=== PATIENT | female | born 1965 | race Caucasian/White ===

== ENCOUNTER 2017-11-23 18:39 | Emergency (ER) | payer OTHER ==
--- OUTSIDE RECORDS SUMMARY | 2017-11-23 18:41 | XMS REPORT | Clinical Summary ---
:1965 Author Organization [facility] Address [address] [place] [address] Care Team Providers Name Role Phone Aneudy Hunter MD Primary Care Provider Allergies Active Allergy Reactions Severity Noted Date Comments Codeine Itching 02/03/2017 Morphine Other (See Comments), GI Intolerance 02/03/2017 Chest pains Current Medications Prescription Sig. Disp. Refills Start End Date Status Date propranolol (INDERAL) Take 20 mg by 1 Active 20 MG tablet mouth daily. 7 LEXAPRO 10 mg tablet Take 1 tablet Active by mouth 8 daily. gabapentin (NEURONTIN) Take 1 tab at 30 capsule 3 Active 300 mg night 8 capsuleIndications: Mixed headache SUMAtriptan (IMITREX) Take 1 tablet 9 tablet 3 Active 50 MG (50 mg total) 8 tabletIndications: by mouth once Mixed headache as needed for migraine for up to 1 dose. amitriptyline (ELAVIL) 1.5 tabs at 60 tablet 4 Active 25 MG night 8 tabletIndications: Mixed headache IMITREX 50 mg tablet 06/02/20 Discontinued 7 17 ESGIC 50-325-40 mg per 02/04/20 Discontinued tablet 7 17 promethazine Take 0.5 60 tablet 2 03/05/20 (PHENERGAN) 25 MG tablets (12.5 7 17 tablet mg total) by mouth 2 (two) times a day as needed for nausea or vomiting for up to 30 days. methylPREDNISolone follow package 21 tablet 0 02/09/20 (MEDROL, FABIAN,) 4 mg directions 7 17 tablet amitriptyline (ELAVIL) Take 1 tablet 30 tablet 3 03/31/20 Discontinued 10 MG tablet (10 mg total) 7 17 by mouth nightly. amitriptyline (ELAVIL) 1 tab at night 30 tablet 4 06/02/20 Discontinued 25 MG 7 17 tabletIndications: Mixed headache keTOROlac 15.75 06/02/20 Discontinued mg/spray 7 17 spray,non-aerosol diclofenac (CATAFLAM) Take 1 tablet 90 tablet 1 10/21/19 Discontinued 50 MG (50 mg total) 7 18 tabletIndications: by mouth 2 Mixed headache (two) times a day as needed (migraine only). amitriptyline (ELAVIL) 1.5 tabs at 60 tablet 4 10/21/19 Discontinued 25 MG night 7 18 tabletIndications: Mixed headache IMITREX 50 mg Take 1 tablet 9 tablet 6 10/21/19 Discontinued tabletIndications: (50 mg total) 7 18 Mixed headache by mouth once as needed for migraine for up to 1 dose. methylPREDNISolone follow package 21 tablet 0 06/07/20 (MEDROLFABIAN,) 4 mg directions 7 17 tabletIndications: Mixed headache tiZANidine (ZANAFLEX) Take 1 tablet 60 tablet 0 06/29/19 Discontinued 2 MG (2 mg total) 7 18 tabletIndications: by mouth 2 Neck pain (two) times a day as needed for muscle spasms (neck pain) for up to 30 days. tiZANidine (ZANAFLEX) TAKE 1 60 tablet 0 10/21/19 Discontinued 2 MG TABLET(2 MG) 8 18 tabletIndications: BY MOUTH TWICE Neck pain DAILY NEEDED FOR MUSCLE SPASMS OR NECK PAIN diclofenac (CATAFLAM) Take 1 tablet 90 tablet 1 10/22/19 50 MG (50 mg total) 8 18 tabletIndications: by mouth 2 Mixed headache (two) times a day as needed (migraine only) for up to 1 day. Active Problems Problem Noted Date Mixed headache 03/31/2017 Encounters Date Type Specialty Care Team Description 10/20/2017 Office Visit Neurology Aidan Sánchez MD Mixed headache (Primary Dx) 10/20/2017 Orders Only Neurology Aidan Sánchez MD 06/29/2017 Refill Neurology Aidan Sánchez MD Neck pain 06/02/2017 Office Visit Neurology Aidan Sánchez MD Neck pain (Primary Dx); Mixed headache 03/31/2017 Office Visit Neurology Aidan Sánchez MD Mixed headache (Primary Dx) 02/03/2017 Office Visit Neurology Aidan Sánchez MD Mixed headache (Primary Dx) after 11/22/2016 Social History Tobacco Use Types Packs/Day Years Used Date Current Every Day Smoker Cigarettes 0.5 Smokeless Tobacco: Never Used Alcohol Use Drinks/Week oz/Week Comments No Sex Assigned at Date Recorded Not on file Last Filed Vital Signs Vital Sign Reading Time Taken Blood Pressure 132/80 10/20/2017 10:29 AM CDT Pulse 78 10/20/2017 10:29 AM CDT Temperature - - Respiratory Rate - - Oxygen Saturation - - Inhaled Oxygen Concentration - - Weight 93 kg (205 lb) 10/20/2017 10:29 AM CDT Height 175.3 cm (5' 9") 10/20/2017 10:29 AM CDT Body Mass Index 30.27 10/20/2017 10:29 AM CDT Plan of Treatment Date Type Specialty Care Team Description 01/26/2018 Office Visit Neurology Aidan Sán[place] [address] [id number] Health Maintenance Due Date Last Done Comments CERVICAL CANCER SCREENING 1987 BREAST CANCER SCREENING 2016 COLON CANCER SCREENING 2016 SHINGRIX VACCINE (#1) 2016 INFLUENZA VACCINE 01/24/2018 Results T3 (10/20/2017 11:04 AM) Component Value Ref Range T3 101 71 - 180 ng/dL Specimen Performing Laboratory [facility] Narrative Performed at:[address] [place], [place] [id number] Tinter Photograph: Jase Ochoa MD, Phone:[phone] Thyroid stimulating hormone (10/20/2017 11:04 AM) Component Value Ref Range TSH 1.590 0.450 - 4.500 uIU/mL Specimen Performing Laboratory [facility] Narrative Performed at:[address] [place], [place] [id number] Tinter Photograph: Jase Ochoa MD, Phone:[phone] Specimen Comment: A duplicate report has been generated due to demographic updates. T4, free (10/20/2017 11:04 AM) Component Value Ref Range T4, free 1.23 0.82 - 1.77 ng/dL Specimen Performing Laboratory [facility] Narrative Performed at: - [id number] Tinter Photograph: Jase Ochoa MD, Phone:[phone] after 11/22/2016 Insurance Payer Benefit Plan / Group Subscriber ID Type Phone Address [facility] CHOICE/CHOICE + xxxxxxxxx HMO/PPO Home: [address] [place], [place] [id number] [place] [id number]
[2017-11-23] MEDS ORDERED: TETANUS & DIPHTHERIA TOX,ADULT 0.5 ML VIAL ONE (19:09)
[2017-11-23] MEDS ORDERED: DERMABOND SKIN ADHESIVE TOP ONE (19:09)
[2017-11-23] MEDS ORDERED: CEPHALEXIN 250 MG CAP ONE (19:16)
--- NOTE | 2017-11-23 19:34 | ER ---
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 Transition of care: patient was not received from another setting of care. Onset of symptoms was November 23, 2017. Care prior to arrival: None. 18:49 Method Of Arrival: Ambulatory aj 18:49 Acuity: CARSON 4 aj 19:22 Risk Assessment: Do you want to hurt yourself or someone else? Patient reports no jd3 desire to harm self or others. Initial Sepsis Screen: Does the patient meet any 2 criteria? No. Patient's initial sepsis screen is negative. Does the patient have a suspected source of infection? No. Patient's initial sepsis screen is negative. Triage Assessment: 18:50 General: Appears in no apparent distress. comfortable, Behavior is calm, cooperative, aj appropriate for age. Pain:. Neuro: Level of Consciousness is awake, alert, obeys commands, Oriented to person, place, time, situation. Respiratory: Airway is patent Respiratory effort is even, unlabored, Respiratory pattern is regular, symmetrical. Derm: Skin is intact, is healthy with good turgor, Skin is pink, warm \T\ dry. normal. Injury Description: Laceration sustained to dorsal aspect of middle phalanx of right ring finger. 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 - Social history:: Smoking status: Patient uses tobacco products, smokes one pack cigarettes per day. - Ebola Screening: : Patient negative for fever greater than or equal to 101.5 degrees Fahrenheit, and additional compatible Ebola Virus Disease symptoms. Screenin:22 Abuse screen: Denies threats or abuse. Nutritional screening: No deficits noted. jd3 Tuberculosis screening: No symptoms or risk factors identified. Fall Risk None identified. Assessment: 19:20 General: Appears in no apparent distress. Behavior is calm, cooperative, appropriate jd3 for age. Pain: Denies pain. Neuro: Level of Consciousness is awake, alert, obeys commands, Oriented to person, place, time, situation. Cardiovascular: Capillary refill < 3 seconds Patient's skin is warm and dry. Respiratory: Airway is patent Respiratory effort is even, unlabored, Respiratory pattern is regular, symmetrical, Denies shortness of breath. GI: No signs and/or symptoms were reported involving the gastrointestinal system. : No signs and/or symptoms were reported regarding the genitourinary system. EENT: No signs and/or symptoms were reported regarding the EENT system. Derm: Skin is intact, Skin is dry, Skin is normal, Skin temperature is warm. Musculoskeletal: Circulation, motion, and sensation intact. Range of motion: intact in all extremities. Injury Description: Laceration sustained to dorsal aspect of proximal phalanx of right ring finger is clean, 0.5 to 2.5 cm long, not bleeding, was sustained 30-60 minutes ago. no active bleeding noted at this time. 19:45 Reassessment: Patient appears in no apparent distress at this time. Patient and/or jd3 family updated on plan of care and expected duration. Pain level reassessed. Patient is alert, oriented x 3, equal unlabored respirations, skin warm/dry/pink. pt reported understanding of discharge instructions, even and steady gait upon discharge. Patient denies pain at this time. Vital Signs: 18:50 BP 155 / 81; Pulse 84; Resp 16; Temp 97.7; Pulse Ox 98% on R/A; Weight 92.99 kg; Height aj 5 ft. 9 in. (175.26 cm); 18:50 Body Mass Index 30.27 (92.99 kg, 175.26 cm) aj ED Course: 18:44 Patient arrived in ED. mr 18:44 Aneudy Hunter MD is Private Physician. mr 18:49 Triage completed. aj 18:50 Arm band placed on left wrist. Patient placed in an exam room. aj 18:52 [facility]C [facility]. snw 18:52 Ramo Molina MD is Attending Physician. snw 19:03 Luis Suazo, RN is Primary Nurse. jd3 19:23 Patient has correct armband on for positive identification. Bed in low position. Call jd3 light in reach. Side rails up X 1. Adult w/ patient. 19:34 Aneudy Hunter MD is Referral Physician. snw 19:45 No provider procedures requiring assistance completed. Patient did not have IV access jd3 during this emergency room visit. Administered Medications: 18:56 CANCELLED (not needed): Lidocaine (1 %) 5 mg Infiltration once snw 19:15 Drug: Tetanus-Diphtheria Toxoid Adult 0.5 ml {Outreach Educator: [employer]. Exp: jd3 02/23/2020. Lot #: [id number]. } Route: IM; Site: right deltoid; 19:47 Follow up: Response: No adverse reaction jd3 19:16 Drug: KeFLEX 500 mg Route: PO; mg2 19:46 Follow up: Response: No adverse reaction jd3 Outcome: 19:34 Discharge ordered by . snw 19:45 Discharged to home ambulatory, with family. jd3 19:45 Condition: stable 19:45 Discharge instructions given to patient, family, Instructed on discharge instructions, follow up and referral plans. medication usage, Demonstrated understanding of instructions, follow-up care, medications, Prescriptions given X 2. 19:47 Patient left the ED. jd3 Signatures: Liudmila Ayala, RN Christine Lopez, JUNIOR ELECTRICAL ENGINEER-C JUNIOR ELECTRICAL ENGINEER-Csnw Laquita Heck mr Luis Suazo, RN RN jRalph Roper RN RN mg2
--- NOTE | 2017-11-23 19:35 | EDPHYS ---
Physician Documentation [facility] Name: Lucita Arechiga Age: 52 yrs Sex: Female : 1965 Arrival Date: 11/23/2017 Time: 18:44 Bed 6 Private MD: Aneudy Hunter V ED Physician Ramo Molina HPI: 11/23 18:59 This 52 yrs old Female presents to ER via Ambulatory with complaints of snw Laceration to finger. 18:59 The patient or guardian reports a laceration, simple. The complaints affect the PIP of snw right ring finger. Context: The problem was sustained at work. Onset: The symptoms/episode began/occurred suddenly. Associated signs and symptoms: The patient has no apparent associated signs or symptoms. Severity of symptoms: At their worst the symptoms were very mild. The patient has not experienced similar symptoms in the past. It is unknown whether or not the patient has recently seen a physician. pt unloading sheet metal and it struck her right ring finger. 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 - Social history:: Smoking status: Patient uses tobacco products, smokes one pack cigarettes per day. - Ebola Screening: : Patient negative for fever greater than or equal to 101.5 degrees Fahrenheit, and additional compatible Ebola Virus Disease symptoms. ROS: 18:58 Constitutional: Negative for fever, chills, and weight loss, Eyes: Negative for injury, snw pain, redness, and discharge, ENT: Negative for injury, pain, and discharge, Neck: Negative for injury, pain, and swelling, Cardiovascular: Negative for chest pain, palpitations, and edema, Respiratory: Negative for shortness of breath, cough, wheezing, and pleuritic chest pain, Abdomen/GI: Negative for abdominal pain, nausea, vomiting, diarrhea, and constipation, Back: Negative for injury and pain, : Negative for injury, bleeding, discharge, and swelling, MS/Extremity: Negative for injury and deformity, Neuro: Negative for headache, weakness, numbness, tingling, and seizure, Psych: Negative for depression, anxiety, suicide ideation, homicidal ideation, and hallucinations. 18:58 Skin: Positive for laceration(s), of the dorsal aspect of middle phalanx of right ring finger. Exam: 18:57 Constitutional: This is a well developed, well nourished patient who is awake, alert, snw and in no acute distress. Head/Face: Normocephalic, atraumatic. Eyes: Pupils equal round and reactive to light, extra-ocular motions intact. Lids and lashes normal. Conjunctiva and sclera are non-icteric and not injected. Cornea within normal limits. Periorbital areas with no swelling, redness, or edema. ENT: Nares patent. No nasal discharge, no septal abnormalities noted. Tympanic membranes are normal and external auditory canals are clear. Oropharynx with no redness, swelling, or masses, exudates, or evidence of obstruction, uvula midline. Mucous membranes moist. Neck: Trachea midline, no thyromegaly or masses palpated, and no cervical lymphadenopathy. Supple, full range of motion without nuchal rigidity, or vertebral point tenderness. No Meningismus. Chest/axilla: Normal chest wall appearance and motion. Nontender with no deformity. No lesions are appreciated. Cardiovascular: Regular rate and rhythm with a normal S1 and S2. No gallops, murmurs, or rubs. Normal PMI, no JVD. No pulse deficits. Respiratory: Lungs have equal breath sounds bilaterally, clear to auscultation and percussion. No rales, rhonchi or wheezes noted. No increased work of breathing, no retractions or nasal flaring. Abdomen/GI: Soft, non-tender, with normal bowel sounds. No distension or tympany. No guarding or rebound. No evidence of tenderness throughout. Back: No spinal tenderness. No costovertebral tenderness. Full range of motion. MS/ Extremity: Pulses equal, no cyanosis. Neurovascular intact. Full, normal range of motion. Neuro: Awake and alert, GCS 15, oriented to person, place, time, and situation. Cranial nerves II-XII grossly intact. Motor strength 5/5 in all extremities. Sensory grossly intact. Cerebellar exam normal. Normal gait. Psych: Awake, alert, with orientation to person, place and time. Behavior, mood, and affect are within normal limits. 18:57 Skin: Appearance: normal except for affected area, injury, laceration(s), the wound is approximately .5 cm(s), with a depth of .25 cm(s), of the dorsal aspect of middle phalanx of right ring finger. Vital Signs: 18:50 BP 155 / 81; Pulse 84; Resp 16; Temp 97.7; Pulse Ox 98% on R/A; Weight 92.99 kg; Height aj 5 ft. 9 in. (175.26 cm); 18:50 Body Mass Index 30.27 (92.99 kg, 175.26 cm) aj Laceration: 19:32 Wound Repair of .5cm ( 0.2in ) subcutaneous laceration to dorsal aspect of proximal snw phalanx of right ring finger. Linear shaped.. Distal neuro/vascular/tendon intact. Anesthesia: Local anesthetic administered with 0 mls of 1% lidocaine. Wound prep: Simple cleansing with betadine by me. Skin closed with thin layer Adhesive skin closure using Dermabond. Dressed with non-adherent dressing, finger splint to maintain extension. Patient tolerated well. MDM: 18:53 Patient medically screened. snw 19:32 Data reviewed: vital signs, nurses notes. Data interpreted: Pulse oximetry: on room air snw is 98 %. Interpretation: normal. Counseling: I had a detailed discussion with the patient and/or guardian regarding: the historical points, exam findings, and any diagnostic results supporting the discharge/admit diagnosis, the presence of at least one elevated blood pressure reading (>120/80) during this emergency department visit, the need for outpatient follow up, to return to the emergency department if symptoms worsen or persist or if there are any questions or concerns that arise at home. Special discussion: I have referred the patient to see his PCP for further evaluation of high blood pressure. Based on the history and exam findings, there is no indication for further emergent testing or inpatient evaluation. I discussed with the patient/guardian the need to see the primary care provider for further evaluation of the symptoms. 11/23 18:53 Order name: Wound dressing; Complete Time: 19:35 snw 11/23 18:53 Order name: Wound Care; Complete Time: 19:16 snw 11/23 18:57 Order name: Splint - Finger; Complete Time: 19:34 snw 11/23 18:57 Order name: Dermabond; Complete Time: 19:16 snw 11/23 18:57 Order name: Misc. Order: please soak right hand in ice water mixture long enough to get snw ring off; Complete Time: 19:15 Administered Medications: 18:56 CANCELLED (not needed): Lidocaine (1 %) 5 mg Infiltration once snw 19:15 Drug: Tetanus-Diphtheria Toxoid Adult 0.5 ml {Marketing Services Coordinator: [employer]. Exp: jd3 02/23/2020. Lot #: [id number]. } Route: IM; Site: right deltoid; 19:47 Follow up: Response: No adverse reaction jd3 19:16 Drug: KeFLEX 500 mg Route: PO; mg2 19:46 Follow up: Response: No adverse reaction jd3 Disposition: 22:17 Co-signature as Attending Physician, Ramo Molina MD I agree with the assessment and kdr plan of care. Disposition: 11/23/17 19:34 Discharged to Home. Impression: Laceration without foreign body of finger without damage to nail. - Condition is Stable. - Discharge Instructions: Cast or Splint Care, Laceration Care, Adult, Non-Sutured Laceration, VIS, Tetanus, Diphtheria (Td) - CDC. - Prescriptions for Keflex 500 mg Oral Capsule - take 1 capsule by ORAL route every 8 hours for 10 days; 30 capsule. Diclofenac Sodium 75 mg Oral Tablet Sustained Release - take 1 tablet by ORAL route 2 times per day; 30 tablet. - Medication Reconciliation Form, Thank You Letter, Antibiotic Education, Prescription Opioid Use form. - Follow up: Aneudy Hunter MD; When: 7 - 10 days; Reason: Recheck today's complaints, Continuance of care. Follow up: Emergency Department; When: As needed; Reason: Worsening of condition. Signatures: Liudmila Ayala RN RN aj Rittger, Kevin, MD MD kdr Therrien, Shelly, TRAFFIC RATE ANALYST-C TRAFFIC RATE ANALYST-Csnw Luis Suazo RN RN jRalph Roper RN RN mg2 Corrections: (The following items were deleted from the chart) 18:56 18:53 Lidocaine (1 %) 5 mg Infiltration once ordered. snw snw 19:47 19:34 11/23/2017 19:34 Discharged to Home. Impression: Laceration without foreign body jd3 of finger without damage to nail. Condition is Stable. Forms are Medication Reconciliation Form, Thank You Letter, Antibiotic Education, Prescription Opioid Use. Follow up: Aneudy Hunter; When: 7 - 10 days; Reason: Recheck today's complaints, Continuance of care. Follow up: Emergency Department; When: As needed; Reason: Worsening of condition. snw
[2017-11-23 19:52] VITALS: BP 155/81; TEMP 97.7; O2SAT 98
== END 2017-11-23 19:47 | disposition home or self-care (01) ==
LOC: ER 18:39
PROC: 0HQFXZZ Repair Right Hand Skin, External Approach (ICD-10-PCS; principal; 2017-11-23)
DX: S61.214A Laceration without foreign body of right ring finger without damage to nail, initial encounter (principal); F17.210 Nicotine dependence, cigarettes, uncomplicated; Z23 Encounter for immunization; I10 Essential (primary) hypertension; Z88.6 Allergy status to analgesic agent; W45.8XXA Other foreign body or object entering through skin, initial encounter; Y93.89 Activity, other specified; Y92.9 Unspecified place or not applicable; Y99.0 Civilian activity done for income or pay
CPT/HCPCS: 90714; 99283

== ENCOUNTER 2020-08-03 09:31 | Inpatient (IN) | payer BC, OTHER ==
[2020-08-03 10:23] LABS: Protime INR 1.01
[2020-08-03 10:40] LABS: BUN Blood Urea Nitrogen 11 mg/dL (7-18); Bicarbonate 27 mmol/L (21-32); Glucose Level 94 mg/dL (74-106); Magnesium 2.2 mg/dL (1.8-2.4); NT PRO-BNP 319 pg/mL (<125); Potassium 3.8 mmol/L (3.5-5.1); Sodium Level 142 mmol/L (136-145); Troponin (Emerg Dept Use Only) < 0.02 ng/mL (0.0-0.045)
--- NOTE | 2020-08-03 10:40 | EDPHYS ---
Physician Documentation [facility] Name: Lucita Arechiga Age: 54 yrs Sex: Female : 1965 Arrival Date: 08/03/2020 Time: 09:35 Bed 20 Private MD: Alfonso Pulido ED Physician Prince Saini HPI: 08/03 09:53 This 54 yrs old Female presents to ER via Ambulatory with complaints of rn Abnormal EKG. 09:53 The patient or guardian reports chest pain that is located primarily in the substernal rn area. Onset: 2 week(s) ago. The pain radiates to Associated signs and symptoms: Pertinent positives: cough, shortness of breath, Pertinent negatives: abdominal pain, lightheadedness, syncope, vomiting. The chest pain is described as aching, a heaviness. Duration: The patient or guardian reports multiple episodes, that are intermittent. Modifying factors: The symptoms are alleviated by rest, the symptoms are aggravated by exertion. Severity of pain: At its worst the pain was moderate in the emergency department the pain has improved. The patient has not experienced similar symptoms in the past. Sent by cardiology for suspected unstable angina, has been having intermittent chest pain with exertion, getting worse, radiates to both shoulders and back. No abd pain. + smoker with family hx of heart attacks in family at her age. No fever. No change in cough recently. . Historical: - Allergies: 09:40 Codeine; sv 09:40 Morphine; sv - PMHx: 09:40 Hypertension; Migraines; sv - PSHx: 09:40 Hysterectomy; Cholecystectomy; rotator cuff; leg surgery; sv - Immunization history:: Adult Immunizations up to date. - Social history:: Smoking status: Patient reports the use of cigarette tobacco products, denies chronic smoking, but will smoke occasionally. - Family history:: not pertinent. - Hospitalizations: : No recent hospitalization is reported. ROS: 09:53 Constitutional: Negative for fever, chills, and weight loss, Eyes: Negative for injury, rn pain, redness, and discharge, Neck: Negative for injury, pain, and swelling, Cardiovascular: Negative for palpitations, and edema, Respiratory: Negative for wheezing, and pleuritic chest pain, Abdomen/GI: Negative for abdominal pain, nausea, vomiting, diarrhea, and constipation, MS/Extremity: Negative for injury and deformity, Skin: Negative for injury, rash, and discoloration, Neuro: Negative for headache, weakness, numbness, tingling, and seizure. Exam: 09:53 Constitutional: This is a well developed, well nourished patient who is awake, alert, rn and in no acute distress. Head/Face: Normocephalic, atraumatic. Cardiovascular: Regular rate and rhythm. No pulse deficits. Respiratory: No increased work of breathing, no retractions or nasal flaring. Abdomen/GI: soft, non-tender Skin: Warm, dry MS/ Extremity: Pulses equal, no cyanosis. Neurovascular intact. Full, normal range of motion. Equal circumference. Neuro: Awake and alert, GCS 15, oriented to person, place, time, and situation. Cranial nerves II-XII grossly intact. Motor strength 5/5 in all extremities. Sensory grossly intact. Cerebellar exam normal. Normal gait. 10:37 ECG was reviewed by the Attending Physician. rn Vital Signs: 09:40 BP 153 / 96; Pulse 86; Resp 16; Temp 98.7; Pulse Ox 100% ; Weight 95.25 kg; Height 5 sv ft. 9 in. (175.26 cm); Pain 0/10; 11:00 BP 153 / 90; Pulse 82; Resp 18; Pulse Ox 100% on R/A; ph 12:00 BP 153 / 91; Pulse 73; Resp 16; Pulse Ox 99% on R/A; ph 13:00 BP 149 / 96; Pulse 81; Resp 18; Pulse Ox 100% on R/A; ph 14:00 BP 133 / 95; Pulse 82; Resp 18; Pulse Ox 100% on R/A; ph 09:40 Body Mass Index 31.01 (95.25 kg, 175.26 cm) sv MDM: 09:38 Patient medically screened. rn 09:41 ED course: Consulted with coco Link patient admitted for UA, and will plan to rn cath either today to tomorrow.. 10:38 Differential diagnosis: acute myocardial infarction, coronary artery disease stable rn angina, unstable angina. The patient was given aspirin in the Emergency Department. Data reviewed: vital signs, nurses notes, EKG, radiologic studies, plain films. Counseling: I had a detailed discussion with the patient and/or guardian regarding: the historical points, exam findings, and any diagnostic results supporting the discharge/admit diagnosis, lab results, radiology results, the need for further work-up and treatment in the hospital. Admission orders: after a detailed discussion of the patient's condition and case, the admit orders are written by me. 08/03 09:38 Order name: Basic Metabolic Panel; Complete Time: 10:48 rn 08/03 09:38 Order name: CBC with Diff rn 08/03 09:38 Order name: Magnesium; Complete Time: 10:48 rn 08/03 09:38 Order name: NT PRO-BNP; Complete Time: 10:48 rn 08/03 09:38 Order name: PT-INR; Complete Time: 10:39 rn 08/03 09:38 Order name: Troponin (emerg Dept Use Only); Complete Time: 10:48 rn 08/03 10:22 Order name: Urine Dipstick--Ancillary (enter results) bd 08/03 10:23 Order name: Urine Dipstick-Ancillary EDNM 08/03 10:54 Order name: Ptt, Activated ph 08/03 10:54 Order name: PTT, Activated Partial Thromb EDNM 08/03 13:11 Order name: Basic Metabolic Panel EDNM 08/03 13:11 Order name: Basic Metabolic Panel EDNM 08/03 13:11 Order name: Lipid Profile EDNM 08/03 09:38 Order name: XRAY Chest (1 view); Complete Time: 10:53 rn 08/03 09:38 Order name: EKG; Complete Time: 09:39 rn 08/03 09:38 Order name: Cardiac monitoring; Complete Time: 10:12 rn 08/03 09:38 Order name: EKG - Nurse/Tech; Complete Time: 10:12 rn 08/03 09:38 Order name: IV Saline Lock; Complete Time: 10:12 rn 08/03 13:11 Order name: CONS Physician Consult EDNM 08/03 13:11 Order name: Heart Healthy EDNM 08/03 13:11 Order name: Echo with Doppler EDNM 08/03 13:11 Order name: Lipid Profile EDNM 08/03 13:11 Order name: Troponin I EDNM 08/03 13:11 Order name: Troponin I EDNM 08/03 13:11 Order name: Troponin I EDNM 08/03 14:10 Order name: SARS-COV-2 RT PCR EDNM 08/03 09:38 Order name: Labs collected and sent; Complete Time: 10:12 rn 08/03 09:38 Order name: O2 Per Protocol; Complete Time: 10:12 rn 08/03 09:38 Order name: O2 Sat Monitoring; Complete Time: 10:12 rn 08/03 10:36 Order name: Labs - recollect needed: recollect cbc; Complete Time: 10:55 bd EC:37 Rate is 86 beats/min. Rhythm is regular. QRS Ivel is Normal. LA interval is normal. QRS rn interval is normal. QT interval is normal. No Q waves. T waves are Normal. ST Segment is depressed in leads II, III, aVF, V4, V5, V6. Clinical impression: NSR w/ Non-specific ST/T Changes. Interpreted by me. Reviewed by me. Administered Medications: 11:09 Drug: Heparin (NE-Bolus No thrombolytic) - HEParin 60 units/kg {Co-Signature: ll1 ph (Sarah Brady RN).} Route: IVP; Site: right antecubital; 13:32 Follow up: Response: No adverse reaction ph 11:13 Drug: Aspirin Chewable Tablet 324 mg Route: PO; ph 13:31 Follow up: Response: No adverse reaction ph 11:16 Drug: Heparin (NE Drip) 12 units/kg/hr - (HEParin 14165 units, D5W 500 ml) ph {Co-Signature: ll1 (Sarah Brady RN).} Route: IV; Rate: calculated rate; Site: right antecubital; 13:32 Follow up: IV Status: Infusion continued upon admission ph Disposition: 08/03/20 10:39 Hospitalization ordered by Carlo Marcelino for Inpatient Admission. Preliminary diagnosis are Unstable angina, Chest pain, unspecified. - Bed requested for Telemetry/MedSurg (Inpatient). - Status is Inpatient Admission. ss - Condition is Stable. - Problem is an ongoing problem. - Symptoms are unchanged. Signatures: Dispatcher [employer] EDMS Eusebia Kaminski Stephanie, RN Prince Dailey MD MD rn Smirch, Shelby, RN RN ss Elvira Pérez RN RN Marc Shook RN RN [facility] er Sarah Brady RN ll1 Corrections: (The following items were deleted from the chart) 11:41 10:39 Hospitalization Ordered by Carlo Marcelino MD for Inpatient Admission. Preliminary ss diagnosis is Unstable angina; Chest pain, unspecified. Bed requested for Telemetry/MedSurg (Inpatient). Status is Inpatient Admission. Condition is Stable. Problem is an ongoing problem. Symptoms are unchanged. rn 13:15 12:22 CORONAVIRUS+MR.LAB.BRZ ordered. EDMS EDMS 14:14 11:41 08/03/2020 10:39 Hospitalization Ordered by Carlo Marcelino MD for Inpatient bd Admission. Preliminary diagnosis is Unstable angina; Chest pain, unspecified. Bed requested for [facility] ER HOLD. Status is Inpatient Admission. Condition is Stable. Problem is an ongoing problem. Symptoms are unchanged. ss 14:32 14:14 08/03/2020 10:39 Hospitalization Ordered by Carlo Marcelino MD for Inpatient ja1 Admission. Preliminary diagnosis is Unstable angina; Chest pain, unspecified. Bed requested for [facility] ER HOLD. Status is Inpatient Admission. Condition is Stable. Problem is an ongoing problem. Symptoms are unchanged. bd 15:36 14:32 08/03/2020 10:39 Hospitalization Ordered by Carlo Marcelino MD for Inpatient ss Admission. Preliminary diagnosis is Unstable angina; Chest pain, unspecified. Bed requested for Telemetry/MedSurg (Inpatient). Status is Inpatient Admission. Condition is Stable. Problem is an ongoing problem. Symptoms are unchanged. ja1
--- NOTE | 2020-08-03 10:40 | ER ---
Nurse's Notes [facility] Name: Lucita Arechiga Age: 54 yrs Sex: Female : 1965 Arrival Date: 08/03/2020 Time: 09:35 Bed 20 Private MD: Alfonso Pulido Diagnosis: Unstable angina;Chest pain, unspecified Presentation: 08/03 09:39 Chief complaint: Patient states: sent by regional director to get a heart cath today. Pt sv reports she had gotten an EKG by her PCP and they sent her to a regional director because the EKG was abnormal. Coronavirus screen: Client denies travel out of the [place] in the last 14 days. At this time, the client does not indicate any symptoms associated with coronavirus-19. Ebola Screen: No symptoms or risks identified at this time. Risk Assessment: Do you want to hurt yourself or someone else? Patient reports no desire to harm self or others. Onset of symptoms was August 03, 2020. 09:39 Method Of Arrival: Ambulatory sv 09:39 Acuity: CARSON 3 sv 09:40 Initial Sepsis Screen: Does the patient meet any 2 criteria? No. Patient's initial sv sepsis screen is negative. Does the patient have a suspected source of infection? No. Patient's initial sepsis screen is negative. Historical: - Allergies: 09:40 Codeine; sv 09:40 Morphine; sv - PMHx: 09:40 Hypertension; Migraines; sv - PSHx: 09:40 Hysterectomy; Cholecystectomy; rotator cuff; leg surgery; sv - Immunization history:: Adult Immunizations up to date. - Social history:: Smoking status: Patient reports the use of cigarette tobacco products, denies chronic smoking, but will smoke occasionally. - Family history:: not pertinent. - Hospitalizations: : No recent hospitalization is reported. Screenin:42 Abuse screen: Denies threats or abuse. Denies injuries from another. Nutritional ph screening: No deficits noted. Tuberculosis screening: No symptoms or risk factors identified. Fall Risk None identified. Assessment: 10:00 General: Appears in no apparent distress. comfortable, well groomed, Behavior is calm, ph cooperative, appropriate for age, Denies fever, feeling ill. Pain: Complains of pain in mid-sternal area Pain radiates to bilateral shoulders denies pain at this time. Neuro: Level of Consciousness is awake, alert, obeys commands, Oriented to person, place, time, situation. Cardiovascular: Capillary refill < 3 seconds in bilateral fingers Patient's skin is warm and dry. Chest pain quality is heaviness, episodes are intermittent is aggravated by activity. Respiratory: Airway is patent Respiratory effort is even, unlabored, Respiratory pattern is regular, symmetrical. GI: No signs and/or symptoms were reported involving the gastrointestinal system. Derm: Skin is intact, is healthy with good turgor, Skin is pink, warm \T\ dry. Musculoskeletal: Circulation, motion, and sensation intact. Range of motion: intact in all extremities. 14:14 Reassessment: Patient appears in no apparent distress at this time. Patient and/or ph family updated on plan of care and expected duration. Pain level reassessed. Patient is alert, oriented x 3, equal unlabored respirations, skin warm/dry/pink. Pt taken to label machine operator. Vital Signs: 09:40 BP 153 / 96; Pulse 86; Resp 16; Temp 98.7; Pulse Ox 100% ; Weight 95.25 kg; Height 5 sv ft. 9 in. (175.26 cm); Pain 0/10; 11:00 BP 153 / 90; Pulse 82; Resp 18; Pulse Ox 100% on R/A; ph 12:00 BP 153 / 91; Pulse 73; Resp 16; Pulse Ox 99% on R/A; ph 13:00 BP 149 / 96; Pulse 81; Resp 18; Pulse Ox 100% on R/A; ph 14:00 BP 133 / 95; Pulse 82; Resp 18; Pulse Ox 100% on R/A; ph 09:40 Body Mass Index 31.01 (95.25 kg, 175.26 cm) sv ED Course: 09:35 Patient arrived in ED. mr 09:36 Alfonso Pulido MD is Private Physician. mr 09:37 Elvira Pérez, DAVE is Primary Nurse. ph 09:37 Prince Saini MD is Attending Physician. rn 09:39 Triage completed. sv 09:40 Arm band placed on. sv 09:42 Patient has correct armband on for positive identification. Placed in gown. Bed in low ph position. Call light in reach. Side rails up X 1. director dietetics department on. Pulse ox on. NIBP on. Door closed. Noise minimized. Warm blanket given. 10:12 Initial lab(s) drawn, by me, sent to lab. EKG done. Inserted saline lock: 22 gauge in ph right antecubital area, using aseptic technique. Blood collected. 10:17 X-ray completed. Portable x-ray completed in exam room. Patient tolerated procedure ml well. 10:18 XRAY Chest (1 view) In Process Unspecified. EDMS 10:38 Carlo Marcelino MD is Hospitalizing Provider. rn 12:30 COVID swab sent to lab. jp3 14:14 No provider procedures requiring assistance completed. Patient admitted, IV remains in ph place. Administered Medications: 11:09 Drug: Heparin (TX-Bolus No thrombolytic) - HEParin 60 units/kg {Co-Signature: ll1 ph (Sarah Brady RN).} Route: IVP; Site: right antecubital; 13:32 Follow up: Response: No adverse reaction ph 11:13 Drug: Aspirin Chewable Tablet 324 mg Route: PO; ph 13:31 Follow up: Response: No adverse reaction ph 11:16 Drug: Heparin (TX Drip) 12 units/kg/hr - (HEParin 00101 units, D5W 500 ml) ph {Co-Signature: ll1 (Sarah Brady RN).} Route: IV; Rate: calculated rate; Site: right antecubital; 13:32 Follow up: IV Status: Infusion continued upon admission ph Outcome: 10:39 Decision to Hospitalize by Provider. rn 14:14 Patient left the ED. bd 15:35 Admitted to Med/surg accompanied by tech, via stretcher, with chart. ph 15:35 Condition: stable 15:35 Instructed on the need for admit. 15:36 Patient left the ED. Signatures: Dispatcher [employer] EDMS Eusebia Kaminski Pratima Farr RN DAVE Heck, La mr Rubio, Prince Light MD MD rn Smirch, Shelby, RN RN ss Hall, Patricia, RN RN ph Pisarski, Jacob jp3 Sarah Brady RN ll1 Corrections: (The following items were deleted from the chart) 19:23 14:14 Condition: good ph ph 19:23 14:14 Discharged to home via wheelchair, with family, ph ph 19:23 14:14 Discharge instructions given to patient, Instructed on discharge instructions, ph follow up and referral plans. medication usage, Demonstrated understanding of instructions, follow-up care, medications, Prescriptions given X 1, ph
--- NOTE | 2020-08-03 10:52 | RAD REPORT ---
EXAM DESCRIPTION: RAD - Chest Single View - 08/03/2020 10:18 am CLINICAL HISTORY: CHEST PAIN Chest pain. COMPARISON: CHEST SINGLE VIEW dated 12/27/2014; CHEST SINGLE VIEW dated 12/09/2013 FINDINGS: Portable technique limits examination quality. The lungs are grossly clear. The heart is normal in size. No displaced fractures. IMPRESSION: No acute intrathoracic process suspected.
[2020-08-03 10:55] LABS: Absolute Lymphocytes (CBC) 1.9 K/uL (0.7-4.9); Basophils % 0.6 % (0-1.3); Hematocrit 40.8 % (36.0-45.0); Lymphocytes % 25.8 % (15.3-44.8); RBC Red Blood Cell Count 4.18 M/uL (3.86-4.86)
[2020-08-03] MEDS ORDERED: ASPIRIN 81 MG CHEWABLE TABLET ONE (11:06)
[2020-08-03] MEDS ORDERED: HEPARIN/D5W 25,000 UNIT/500 ML BAG IV ONE (11:07)
[2020-08-03] MEDS ORDERED: HEPARIN 5000 UNIT/ML 1 ML VIAL ONE (11:07)
[2020-08-03] MEDS ORDERED: ALPRAZOLAM 0.25 MG TABLET PO PRN (13:06)
[2020-08-03] MEDS ORDERED: ASPIRIN 325 MG TAB PO ONE (13:06)
[2020-08-03] MEDS ORDERED: ACETAMINOPHEN 500 MG TAB PO PRN (13:06)
[2020-08-03] MEDS ORDERED: MORPHINE 4 MG/ML SYR IV PRN (13:06)
[2020-08-03 13:24] LABS: Urine Blood NEGATIVE (NEG); Urine Glucose NEGATIVE (NEG); Urine Protein NEGATIVE (NEG); Urine Specific Gravity >1.030 (1.005-1.030); Urine pH 5.5 (5.0-7.0)
[2020-08-03] MEDS ORDERED: HEPARIN/D5W 25,000 UNIT/500 ML BAG IV SCH (14:00)
--- NOTE | 2020-08-03 14:10 | P.HP ---
Certification for Inpatient Patient admitted to: Inpatient With expected LOS: >2 Midnights Patient will require the following post-hospital care: None Practitioner: I am a practitioner with admitting privileges, knowledge of patient current condition, hospital course, and medical plan of care. Services: Services provided to patient in accordance with Admission requirements found in Title 42 Section 412.3 of the Code of Federal Regulations Patient History Date of Service: 08/03/20 Reason for admission: Unstable angina History of Present Illness: Patient is a 54-year-old female came to hospital with an abnormal EKG from her cardiology office. Patient had chest discomfort which she described as heaviness. Patient also has had some shortness of breath. Patient denies any syncope or any lightheadedness. Patient denies any palpitations. Patient denies any fever, shakes, or chills. Patient was seen in the emergency room and initial workup is unremarkable. However, patient's current symptoms are concerning for unstable angina per her history per this time will admit patient to the hospital for further evaluation. Incidentally, patient's COVID-19 testing came back positive. If she does not have any significant shortness of breath. She did have some chills a few days prior and she feels she may have had some coughing and congestion about a week ago. Otherwise, she did not really suspect that she had a viral infection. Allergies codeine Allergy (Unknown, Verified 08/03/20 18:05) Itching morphine Allergy (Verified 08/03/20 18:05) Unknown Home Medications: Indomethacin 50 mg PO BID 08/03/20 Lisinopril [Zestril] 1 tab PO DAILY 08/03/20 Ondansetron HCl [Zofran] 4 mg PO DAILY 08/03/20 - Past Medical/Surgical History Diabetic: No -: Hypertension -: Migraines -: hysterctomy -: right roter cuff -: Cholecystectomy - Family History Father Family History: Reviewed- Non-Contributory - Social History Smoking Status: Current every day smoker Alcohol use: No CD- Drugs: No Caffeine use: No Review of Systems 10-point ROS is otherwise unremarkable Physical Examination - Vital Signs Temperature: 99 F Blood Pressure: 140/80 Pulse: 80 Respirations: 18 Pulse Ox (%): 95 - Physical Exam General: Alert, In no apparent distress, Oriented x3 HEENT: Atraumatic, PERRLA, Mucous membr. moist/pink, EOMI, Sclerae nonicteric Neck: Supple, 2+ carotid pulse no bruit, No LAD, Without JVD or thyroid abnormality Respiratory: Clear to auscultation bilaterally, Normal air movement Cardiovascular: Regular rate/rhythm, Normal S1 S2, No murmurs Gastrointestinal: Normal bowel sounds, Soft and benign, Non-distended, No tenderness Musculoskeletal: No clubbing, No swelling, No tenderness Integumentary: No rashes Neurological: Normal gait, Normal speech, Normal strength at 5/5 x4 extr, Normal tone, Normal affect Lymphatics: No axilla or inguinal lymphadenopathy - Studies Laboratory Data (last 24 hrs) 08/03/20 10:49: WBC 7.30, Hgb 14.3, Hct 40.8, Plt Count 208 08/03/20 10:13: Triglycerides 201 H, Cholesterol 188, HDL Cholesterol 41, Cholesterol/HDL Ratio 4.59 08/03/20 10:13: APTT 29.2 08/03/20 10:13: PT 11.6, INR 1.01 08/03/20 10:13: Sodium 142, Potassium 3.8, BUN 11, Creatinine 0.81, Glucose 94, Magnesium 2.2 Assessment & Plan - Problems (Diagnosis) (1) Unstable angina Current Visit: Yes Status: Acute (2) COVID-19 Current Visit: Yes Status: Acute - Plan Continue with plan of care as mentioned below 1. Serial troponins and EKG 2. Appreciate Cardiology consultation 3. Echocardiogram and stress test if cardiology is agreeable 4. Anti-platelet therapy, anti coagulation, beta-fredy, statin, and O2 as needed 5. IV morphine for pain 6. Nitro p.r.n. 7. Monitor oxygenation 8. GI and DVT prophylaxis Discharge Plan: Home Plan to discharge in: Greater than 2 days - Advance Directives Does patient have a Living Will: No Does patient have a Durable POA for Healthcare: No - Code Status/Comfort Care Code Status Assessed: Yes Code Status: Full Code Critical Care: No Time Spent Managing PTS Care (In Minutes): 45
[2020-08-03] MEDS ORDERED: HEPA 1000U/500MLS 0 UNIT/0 ML BAG IV ONE (14:28)
[2020-08-03 15:52] VITALS: BMI 31.0
[2020-08-03] MEDS ORDERED: INFLUENZA VACCINE (for 3y+) 0.5 ML DOSE IMVAC ONE (17:00)
[2020-08-03] MEDS: TRAMADOL HCL 50 MG TAB PO PRN (18:03)
[2020-08-03] MEDS: METOPROLOL TAR 50 MG TAB PO SCH (20:59)
[2020-08-03] MEDS ORDERED: NITROGLYCERIN 0.4 MG/TAB SL PRN (21:59)
[2020-08-04 04:01] LABS: Absolute Lymphocytes (CBC) 2.6 K/uL (0.7-4.9); Hematocrit 38.5 % (36.0-45.0); Lymphocytes % 39.4 % (15.3-44.8); MPV 9.1 fL (7.6-11.3); RBC Red Blood Cell Count 3.94 M/uL (3.86-4.86)
[2020-08-04 04:33] LABS: BUN Blood Urea Nitrogen 12 mg/dL (7-18); Bicarbonate 26 mmol/L (21-32); Glucose Level 84 mg/dL (74-106); Potassium 3.9 mmol/L (3.5-5.1); Sodium Level 143 mmol/L (136-145); Troponin I < 0.02 ng/mL (0.0-0.045)
--- NOTE | 2020-08-04 09:31 | P.PN ---
Subjective Date of Service: 08/04/20 Patient clinically doing well. Will speak with Cardiology to see if cardiac catheterization is still scheduled for today. Echocardiogram pending. LDL is 107. Continue with statin therapy at this time. Review of Systems 10-point ROS is otherwise unremarkable Physical Examination - Vital Signs Temperature: 99 F Blood Pressure: 140/80 Pulse: 80 Respirations: 18 Pulse Ox (%): 95 - Physical Exam General: Alert, In no apparent distress, Oriented x3 Respiratory: Clear to auscultation bilaterally, Normal air movement Cardiovascular: Regular rate/rhythm, Normal S1 S2, No murmurs Gastrointestinal: Normal bowel sounds, Soft and benign, Non-distended, No tenderness Musculoskeletal: No tenderness Integumentary: No rashes Neurological: Normal speech, Normal tone, Normal affect Lymphatics: No axilla or inguinal lymphadenopathy - Studies Laboratory Data (last 24 hrs) 08/03/20 10:49: WBC 7.30, Hgb 14.3, Hct 40.8, Plt Count 208 08/03/20 10:13: Triglycerides 201 H, Cholesterol 188, HDL Cholesterol 41, Cholesterol/HDL Ratio 4.59 08/03/20 10:13: APTT 29.2 08/03/20 10:13: PT 11.6, INR 1.01 08/03/20 10:13: Sodium 142, Potassium 3.8, BUN 11, Creatinine 0.81, Glucose 94, Magnesium 2.2 Medications List Reviewed: Yes Assessment & Plan - Problems (Diagnosis) (1) Unstable angina Current Visit: Yes Status: Acute (2) COVID-19 Current Visit: Yes Status: Acute - Plan Continue with plan of care as mentioned below: 1. Serial troponins and EKG 2. Appreciate Cardiology consultation 3. Echocardiogram and stress test if cardiology is agreeable 4. Anti-platelet therapy, anti coagulation with a heparin drip(possible cardiac catheterization today), beta-fredy, statin, and O2 as needed 5. IV morphine for pain 6. Nitro p.r.n. 7. Monitor oxygenation 8. GI and DVT prophylaxis Discharge Plan: Home Plan to discharge in: Greater than 2 days - Advance Directives Does patient have a Living Will: No Does patient have a Durable POA for Healthcare: No - Code Status/Comfort Care Code Status: Full Code Critical Care: No Time Spent Managing PTS Care (In Minutes): 35
[2020-08-04] MEDS: METOPROLOL TAR 50 MG TAB PO SCH ×2 (10:04→20:35)
--- NOTE | 2020-08-04 18:45 | EKG ---
Test Date: 2020-08-03 Test Time: 09:54:58 Pulverizer Tender: AMIE MEASUREMENT RESULTS: Intervals: Rate: 86 MA: 146 QRSD: 86 QT: 408 QTc: 488 Hernando: P: 45 MA: 146 QRS: 43 T: -34 INTERPRETIVE STATEMENTS: Sinus rhythm with occasional premature ventricular complexes ST & T wave abnormality, consider inferior ischemia Prolonged QT Abnormal ECG Compared to ECG 07/17/2018 07:32:04 Ventricular premature complex(es) now present Possible ischemia now present Prolonged QT interval now present ST (T wave) deviation still present Electronically Signed On 08-04-20 18:40:38 HIDE EXAMINER by Ryan Navarro
--- OUTSIDE RECORDS SUMMARY | 2020-08-04 21:11 | XMS REPORT | Clinical Summary ---
:1965 Author Organization [facility] Address [address] [place] [address] Care Team Providers Name Role Phone Aneudy Hunter MD Primary Care Provider Allergies Active Allergy Reactions Severity Noted Date Comments Codeine Itching 02/03/2017 Morphine Other (See Comments), GI Intolerance 01/24 Chest pains Medications Medication Sig Dispensed Refills Start Date End Date Status propranolol (INDERAL) Take 20 mg by 1 11/19/2016 Active 20 MG tablet mouth daily. LEXAPRO 10 mg tablet Take 1 tablet by 0 09/29/2017 Active mouth daily. amitriptyline (ELAVIL) 1.5 tabs at night 60 tablet 4 8 Active 25 MG tabletIndications: Mixed headache SUMAtriptan (IMITREX) Take 1 tablet (50 9 tablet 3 01/26/2018 Active 50 MG mg total) by tabletIndications: mouth once as Mixed headache needed for migraine for up to 1 dose. promethazine TAKE 1/2 60 tablet 0 02/13/2018 Active (PHENERGAN) 25 MG TABLET(12.5 MG) tablet BY MOUTH TWICE DAILY NEEDED FOR NAUSEA OR VOMITING gabapentin (NEURONTIN) TAKE 1 CAPSULE BY 30 capsule 0 11/24/19 19 Active 300 mg MOUTH AT NIGHT capsuleIndications: Mixed headache Active Problems Problem Noted Date Mixed headache 03/31/2017 Surgical History Surgery Date Site/Laterality Comments HYSTERECTOMY GALLBLADDER SURGERY ROTATOR CUFF REPAIR ANKLE SURGERY Right Medical History Medical History Date Comments Hypertension Social History Tobacco Use Types Packs/Day Years Used Date Current Every Day Smoker Cigarettes 0.5 Smokeless Tobacco: Never Used Alcohol Use Drinks/Week oz/Week Comments No Sex Assigned at Date Recorded Not on file Last Filed Vital Signs Not on file Plan of Treatment Health Maintenance Due Date Last Done Comments COVID-19 VACCINE (1 of 2) 1982 HEPATITIS C SCREENING 1984 CERVICAL CANCER SCREENING 1987 BREAST CANCER SCREENING 2016 COLONOSCOPY SCREENING 2016 SHINGLES VACCINES (#1) 2016 INFLUENZA VACCINE 01/25/2020 Results Not on fileafter 08/04/2019 Advance Directives For more information, please contact: [phone] Type Date Recorded 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
--- OUTSIDE RECORDS SUMMARY | 2020-08-04 21:11 | XMS REPORT | Continuity of Care Document ---
:1965 Author Organization [facility] t Address [address] [place] [address] Dr. Carrillo. [address] [place] [address] Care Team Providers Name Role Phone Elsa KNIGHT Primary Care Physician DR ABDIRASHID Attending Clinician Unavailable DR ABDIRASHID Admitting Clinician Unavailable Problems Condition Condition Condition Status Onset Resolution Last Treating Co mments Source Name Details Category Date Date Treatment Clinician Date Mixed Mixed Disease Active 2016-06 [place] headache headache 0-06 [facility] i 00:00: st 00 Allergies, Adverse Reactions, Alerts Allergy Allergy Status Severity Reaction(s) Onset Inactive Treating Comm ents Source Name Type Date Date Clinician Codeine [facility] Active Itching [place] to 8-11 [facility] adverse 00:00: st reaction 00 s to drug Morphine Propensi Active Other (See Chest [place] to Comments), 811 pains [facility] adverse GI 00:00: st reaction Intolerance 00 s to drug Social History Social Habit Start Date Stop Date Quantity Comments Source History of tobacco Cigarette Smoker [place] use [facility] Sex Assigned At [place] [facility] Cigarettes smoked 2018-01-26 2018-01-26 [place] current (pack per 00:00:00 00:00:00 [facility] day) - Reported Tobacco use and 2018-01-26 2018-01-26 Never used [place] exposure 00:00:00 00:00:00 [facility] Alcohol intake 2018-01-26 2018-01-26 Current [place] 00:00:00 00:00:00 non-drinker of Christian alcohol (finding) Smoking Status Start Date Stop Date Source Current every day smoker 2018-01-26 00:00:00 Nia [facility] Medications Ordered Filled Start Stop Current Ordering Indication Dosage Frequency Signature Comments Components Source Medication Medication Date Date Medication? Clinician (SIG) Name Name gabapentin Yes Mixed TAKE 1 [place] (NEURONTIN) 5-31 headache CAPSULE BY [facility] 300 mg 00:00: MOUTH AT st capsule 00 NIGHT promethazin Yes TAKE 1/2 [place] 8-21 TABLET(12. [facility] (PHENERGAN) 00:00: 5 MG) BY st 25 MG 00 MOUTH tablet TWICE DAILY NEEDED FOR NAUSEA OR VOMITING amitriptyli Yes Mixed 1.5 tabs [place] (ELAVIL) 8-03 headache at night [facility] 25 MG 00:00: st tablet 00 SUMAtriptan Yes Mixed 50mg Take 1 [place] (IMITREX) 8-03 headache tablet (50 [facility] 50 MG 00:00: mg total) st tablet 00 by mouth once as needed for migraine for up to 1 dose. LEXAPRO 10 Yes 1{tbl} QD Take 1 [place] ston mg tablet 4-06 tablet by Metho di 00:00: mouth st 00 daily. propranolol Yes 20mg QD Take 20 mg [place] (INDERAL) 5-27 by mouth [facility] i 20 MG 00:00: daily. st tablet 00 Procedures This patient has no known procedures. Plan of Care Planned Activity Planned Date Details Comments Source Future Scheduled 2020-01-25 INFLUENZA VACCINE [place] [facility] Test 00:00:00 [code = INFLUENZA VACCINE] Future Scheduled 2016 BREAST CANCER [facility] Test 00:00:00 SCREENING [code = BREAST CANCER SCREENING] Future Scheduled 2016 COLONOSCOPY SCREENING [place] [facility] Test 00:00:00 [code = COLONOSCOPY SCREENING] Future Scheduled 2016 SHINGLES VACCINES [place] [facility] Test 00:00:00 (#1) [code = SHINGLES VACCINES (#1)] Future Scheduled 1987 Screening for [facility] Test 00:00:00 malignant neoplasm of cervix (procedure) [code = 457883118] Future Scheduled 1984 Hepatitis C screening [place] [facility] Test 00:00:00 (procedure) [code = 329954048] Future Scheduled 1982 COVID-19 VACCINE (1 [place] [facility] Test 00:00:00 of 2) [code = COVID-19 VACCINE (1 of 2)] Encounters Start End Encounter Admission Attending Care Care Encounter Source Date/Time Date/Time Type Type Clinicians Facility Department ID 2018-07-27 2018-07-27 Outpatient [facility] [id number] 05:03:00 08:50:00 [facility] Results This patient has no known results.
[2020-08-05 05:20] LABS: Absolute Lymphocytes (CBC) 2.7 K/uL (0.7-4.9); Basophils % 0.9 % (0-1.3); Hematocrit 37.7 % (36.0-45.0); Lymphocytes % 41.9 % (15.3-44.8); MPV 9.4 fL (7.6-11.3); RBC Red Blood Cell Count 3.88 M/uL (3.86-4.86)
[2020-08-05 05:49] LABS: Magnesium 2.4 mg/dL (1.8-2.4); Phosphorus 3.7 mg/dL (2.5-4.9); Potassium 4.1 mmol/L (3.5-5.1)
[2020-08-05] MEDS: METOPROLOL TAR 50 MG TAB PO SCH (06:15)
[2020-08-05] MEDS ORDERED: HEPA 1000U/500MLS 1,000 UNIT/500 ML BAG IV ONE (07:05)
--- NOTE | 2020-08-05 08:38 | CON ---
Date of Consultation: 08/04/2020 Ms. Lucita Arechiga admitted to Dr. Marcelino's service on 08/03/2020. Reason For Consultation: Chest pain, unstable angina. History Of Present Illness: Ms. Arechiga is a 54-year-old woman. She was seen by Dr. Caraballo in the off ice on 08/03/2020, because of her abnormal EKG and chest pain she was admitted. Her chest x-ray was negative. Her EKG showed inferolateral ischemia. Workup revealed dyslipidemia, slightly elevated BN P, but she was COVID positive. Her symptoms were consistent with unstable angina with substernal luca st pressure radiating to left upper arm and the left neck with some diaphoresis but no shortness of b reath. No nausea, vomiting, palpitation, or syncope. She denied fever or chills or cough. Past Medical History: Include hypertension, degenerative joint disease. Allergies: SHE IS ALLERGIC TO CODEINE AND MORPHINE. Medications: At home include Indocin, lisinopril, and Zofran. Review of Systems: Negative. Social History: Negative. Family History: Positive for heart disease. Physical Examination: Vital Signs: Stable. Afebrile. HEENT: Negative. Neck: Supple without any bruit, lymphadenopathy, JVD, or thyromegaly. Chest: Clear to auscultation and percussion. Cardiac: Revealed a regular rhythm and rate. No murmurs, gallops, or rubs. Abdomen: Benign. Extremities: Revealed no clubbing, cyanosis, or edema. Diagnostic Data: As stated earlier. Impression And Plan: The patient with history of hypertension, family history of heart disease. Sym ptom consists of unstable angina. EKG consistent with inferolateral ischemia. A heart catheterizati on will be planned for 08/05/2020. Heparin drip had been initiated. Brought back to the lab instructor. The patient understands the risks and benefits of the procedure and she agreed to proceed. Further p lans will be made on completion of the heart catheterization. DEANNA/TOOTIE Voice ID: [id number] Report ID: [id number]
--- NOTE | 2020-08-05 11:04 | ECHO ---
HEIGHT: 5 ft 9 in WEIGHT: 210 lb 0 oz DATE OF STUDY: 08/04/[address]: Carlo Marcelino MD 2-DIMENSIONAL: YES M.MODE: YES DOPPLER: YES COLOR FLOW: YES TDS: PORTABLE: DEFINITY: BUBBLE STUDY: DIAGNOSIS: CONGESTIVE HEART FAILURE CARDIAC HISTORY: CATHERIZATION: SURGERY: PROSTHETIC VALVE: PACEMAKER: MEASUREMENTS (cm) DIASTOLIC (NORMALS) SYSTOLIC (NORMALS) IVSd 1.0 (0.6-1.2) LA Diam 3.5 (1.9-4.0) LVEF 65% LVIDd 4.8 (3.5-5.7) LVIDs 3.1 (2.0-3.5) %FS 35% LVPWd 1.2 (0.6-1.2) Ao Diam 3.3 (2.0-3.7) 2 DIMENSIONAL ASSESSMENT: RIGHT ATRIUM: NORMAL LEFT ATRIUM: NORMAL RIGHT VENTRICLE: NORMAL LEFT VENTRICLE: NORMAL TRICUSPID VALVE: NORMAL MITRAL VALVE: NORMAL PULMONIC VALVE: NORMAL AORTIC VALVE: NORMAL PERICARDIAL EFFUSION: NONE AORTIC ROOT: NORMAL LEFT VENTRICULAR WALL MOTION: NORMAL DOPPLER/COLOR FLOW: NORMAL COMMENTS: NORMAL 2-DIMENSIONAL ECHOCARDIOGRAM WITH DOPPLER. NO WALL MOTION ABNORMALITY. NO EFFUSION. TECHNOLOGIST: MARSHA IRAHETA
[2020-08-05] MEDS ORDERED: NA CHLORIDE 0.9% 500 ML ONE (11:20)
[2020-08-05] MEDS ORDERED: MIDAZOLAM HCL 2 MG/2 ML INJ ONE ×2 (11:20→11:36)
[2020-08-05] MEDS ORDERED: NA CHLORIDE 0.9% 0 ML ONE (11:20)
[2020-08-05] MEDS ORDERED: FENTANYL CITR 100 MCG/2 ML ONE (11:20)
[2020-08-05] MEDS ORDERED: ATROPINE SULF 1 MG/10 ML SYR IV ONE (11:20)
--- NOTE | 2020-08-05 12:09 | OP ---
Date of Procedure: 08/05/2020 Surgeon: Ryan Navarro MD Monotype Mechanic: Cally Peoples. The patient will have an Angio-Seal to close her right groin site. Angiography there was normal. Pascale guerra will be at bedrest for 2 hours and she will go home after that. I would like to see her in the off ice in about a month. Procedure Performed: Left heart catheterization and selective coronary arteriogram done as an inpati ent on 08/05/2020. Indication: Unstable angina, abnormal EKG. Procedure In Detail: Ms. Arechiga is a 54-year-old woman, who tested positive for COVID, was having luca st pain, abnormal EKG, brought to the cath lab tech today as an inpatient, prepped and draped in routine s terile fashion, given Versed and fentanyl for sedation. A 6-Setswana sheath introduced in the right co mmon femoral artery successfully. We used 10 cc of Xylocaine and then the Seldinger technique. Judk ins catheter left and right were used to select the left main and right main respectively. She had p erfectly normal coronaries. She tolerated the procedure well. There were no complications. Estimated Blood Loss: 5 cc. Postoperative Diagnoses: Chest pain, abnormal EKG, normal heart catheterization. Plan: Plan is for medical therapy. Anesthesia: Total conscious sedation was 45 minutes. DEANNA/TOOTIE Voice ID: [id number] Report ID: [id number]
[2020-08-05 13:04] VITALS: O2SAT 98
[2020-08-05] MEDS: TRAMADOL HCL 50 MG TAB PO PRN (13:53)
--- NOTE | 2020-08-24 04:56 | P.DS ---
Discharge Date: 08/05/20 Disposition: ROUTINE DISCHARGE Discharge Condition: GOOD Reason for Admission: Unstable angina Consultations: Cardiology - Problems (1) Unstable angina Status: Acute (2) COVID-19 Status: Acute Brief History of Present Illness: Patient is a 54-year-old female came to hospital with an abnormal EKG from her cardiology office. Patient had chest discomfort which she described as heaviness. Patient also has had some shortness of breath. Patient denies any syncope or any lightheadedness. Patient denies any palpitations. Patient denies any fever, shakes, or chills. Patient was seen in the emergency room and initial workup is unremarkable. However, patient's current symptoms are concerning for unstable angina per her history per this time will admit patient to the hospital for further evaluation. Incidentally, patient's COVID-19 testing came back positive. If she does not have any significant shortness of breath. She did have some chills a few days prior and she feels she may have had some coughing and congestion about a week ago. Otherwise, she did not really suspect that she had a viral infection. Hospital Course: Patient has done well during hospital stay. Cardiac catheterization revealed Normal coronaries. At this time, patient is stable for discharge with medical therapy. Vital Signs/Physical Exam: Temp Pulse Resp BP Pulse Ox 97.0 F 57 18 132/73 97 08/05/20 13:22 08/05/20 13:22 08/05/20 13:53 08/05/20 13:22 08/05/20 13:53 General: Alert, In no apparent distress, Oriented x3 Laboratory Data at Discharge: WBC 6.40 K/uL (4.3-10.9) 08/05/20 05:00 Hgb 13.2 g/dL (12.0-15.0) 08/05/20 05:00 Hct 37.7 % (36.0-45.0) 08/05/20 05:00 Plt Count 184 K/uL (152-406) 08/05/20 05:00 PT 11.6 SECONDS (9.5-12.5) 08/03/20 10:13 INR 1.01 08/03/20 10:13 APTT 64.7 SECONDS (24.3-36.9) H 08/05/20 00:34 Sodium 145 mmol/L (136-145) 08/05/20 05:00 Potassium 4.1 mmol/L (3.5-5.1) 08/05/20 05:00 BUN 14 mg/dL (7-18) 08/05/20 05:00 Creatinine 0.90 mg/dL (0.55-1.3) 08/05/20 05:00 Glucose 88 mg/dL (74-106) 08/05/20 05:00 Phosphorus 3.7 mg/dL (2.5-4.9) 08/05/20 05:00 Magnesium 2.4 mg/dL (1.8-2.4) 08/05/20 05:00 Troponin I < 0.02 ng/mL (0.0-0.045) 08/04/20 03:40 Triglycerides 201 mg/dL (<150) H 08/03/20 10:13 Cholesterol 188 mg/dL (<200) 08/03/20 10:13 HDL Cholesterol 41 mg/dL (40-60) 08/03/20 10:13 Cholesterol/HDL Ratio 4.59 08/03/20 10:13 Home Medications: Lisinopril [Zestril] 1 tab PO DAILY 08/03/20 Ondansetron HCl [Zofran] 4 mg PO DAILY 08/03/20 Pantoprazole [Protonix Tab] 40 mg PO DAILY #30 tab 08/05/20 New Medications: Pantoprazole [Protonix Tab] 40 mg PO DAILY #30 tab Diet: AHA Activity: Fall precautions Followup: [facility] [Provider Group] - 1-2 Weeks (call to schedule an appointment ) Ryan Navarro MD [ACTIVE - CAN ADMIT] - 1 Week (Call for appointment in ) Alfonso Pulido MD [Primary Care Provider] - 1-2 Weeks (Call For Appointment) Time spent managing pt's care (in minutes): 35
[2020-08-24 04:57] VITALS: BP 140/80; TEMP 99
== END 2020-08-05 02:50 | disposition home or self-care (01) | DRG 286 ==
LOC: ER 09:31 → ERHOLD 13:07 → 4TH 15:17
PROVIDERS: ADMIT Hospitalist; ATTEND Hospitalist
PROC: 4A023N7 Measurement of Cardiac Sampling and Pressure, Left Heart, Percutaneous Approach (ICD-10-PCS; principal; 2020-08-05)
PROC: B2111ZZ Fluoroscopy of Multiple Coronary Arteries using Low Osmolar Contrast (ICD-10-PCS; 2020-08-05)
DX: I20.0 Unstable angina (principal); U07.1 COVID-19; E78.5 Hyperlipidemia, unspecified; I10 Essential (primary) hypertension; F17.210 Nicotine dependence, cigarettes, uncomplicated; Z90.49 Acquired absence of other specified parts of digestive tract; Z90.710 Acquired absence of both cervix and uterus; Z88.5 Allergy status to narcotic agent; Z79.899 Other long term (current) drug therapy
CPT/HCPCS: 36415; 71045; 80048; 80061; 81003; 83735; 83880; 84100; 84484; 85025; 85610; 85730; 93005; 93306; 93454; 96365; 96366; 99285; C1760; C1893; J0583; J1644; J2250; J3010; J7040; U0003